=== PATIENT | male | born 1960 | race Caucasian/White ===

== ENCOUNTER → 2022-03-09 09:17 | Outpatient (BNVA) | payer OTHER, SELFPAY | PROVIDERS: Visit Provider Surgery | DX: Z12.11 Encounter for screening for malignant neoplasm of colon (principal); Z86.010 Personal history of colon polyps | CPT/HCPCS: 99203 ==

== ENCOUNTER 2022-05-26 09:43 | Day surgery (SDC) | payer OTHER, SELFPAY ==
[2022-05-24 15:07] VITALS: BMI 29.4
[2022-05-26 10:08] VITALS: BP 140/88; PULSE 64; RESP 18; TEMP 36.1; O2SAT 98
[2022-05-26] MEDS: sodium chloride 0.9% 1,000 ML 30 ML IV (10:28)
--- NOTE | 2022-05-26 10:40 | ANES.PREANE2 ---
Pre-Anesthetic Assessment Height/Weight: Height 1.78 m Weight 92.986 kg Temp Pulse Resp BP Pulse Ox O2 Del Method 97.0 F L 64 18 140/88 98 05/26/22 10:08 05/26/22 10:08 05/26/22 10:08 05/26/22 10:08 05/26/22 10:08 05/26/22 10:08 Preop Diagnosis: Screening Operation Date: 05/26/22 11:00 Proposed Procedures p Colonoscopy 86055,Z12.11(Not Applicable) - Elder Stewart DO Familial anesthetic complications: None Was Beta Tanika taken within 24 hours: N/A Was Clonidine taken within 24 hours: N/A Last intake: Intake Last Liquid Date 05/25/22 Last Liquid Time 19:00 Last Solid Date 05/25/22 Last Solid Time 09:00 Social No alcohol and No tobacco Exam alert, oriented x 3, clear to auscultation bilaterally and regular rate & rhythm Airway Submandibular: within normal limits Cervical ROM: Other (Decreased ROM) Mallampati: Class III Dentition: chipped (Chipped and broken teeth) History/ROS No significant history except as noted and No significant complaints Pulmonary None reported CV/HEM None reported None reported Hepatic None reported GI None reported Metabolic None reported Musc/skel Lower Back Pain Neuropsych Anxiety and Depression Anesthetic Plan ASA status: 2 Anesthesia: Anesthesia Evaluation, General and MAC Risk of > 500 ml blood loss (7ml/kg in children): No Medications/Allergies Home Medications Medication Instructions Recorded Confirmed Last Taken Type hydrocodone 5 mg-acetaminophen 325 1 tab PO DAILY PRN Pain 03/08/22 05/26/22 Unknown History mg tablet pravastatin 40 mg tablet 20 mg PO DAILY 03/08/22 05/26/22 05/25/22 History venlafaxine 150 mg 150 mg PO DAILY 03/08/22 05/26/22 05/25/22 History capsule,extended release 24 hr ibuprofen 200 mg tablet 800 mg PO TID PRN Pain 03/09/22 05/26/22 05/25/22 History kratom 1 caplet as directed DAILY PRN Pain 03/09/22 05/26/22 05/25/22 History Allergies Allergy/AdvReac Type Severity Reaction Status Date / Time No Known Allergies Allergy Unverified 05/26/22 10:05 Current Medications Generic Name Dose Route Start Last Admin Trade Name Shaggy PRN Reason Stop Dose Admin Sodium Chloride 1,000 mls @ 30 mls/hr 05/26/22 10:15 05/26/22 10:28 Sodium Chloride 0.9% IV 05/27/22 10:14 30 mls/hr .Q24H CHRISSY Administration PFSH Anesthesia Medical History Anxiety Cervicalgia Depression Hyperlipemia Low back pain Obesity Rosacea Sleep apnea Surgical History History of ankle fusion left History of neck surgery Hx of colonoscopy with polypectomy Hx of left knee surgery Hx of right knee surgery Family History Mother Cancer Father Lung disease Social History Smoking and tobacco status: never smoked Data Anesthesia Cardiac Studies: No Data to Display
--- NOTE | 2022-05-26 11:15 | P.HP_ITS ---
Providers/Chief Complaint Primary Care Provider: СВЕТЛАНА Slater Chief Complaint: Personal history of colonic polyps History of Present Illness Naldo Camara is a 61 year old male who is here for colonoscopy Medications/Allergies Home Medications Medication Instructions Recorded Confirmed Last Taken Type hydrocodone 5 mg-acetaminophen 325 1 tab PO DAILY PRN Pain 03/08/22 05/26/22 Unknown History mg tablet pravastatin 40 mg tablet 20 mg PO DAILY 03/08/22 05/26/22 05/25/22 History venlafaxine 150 mg 150 mg PO DAILY 03/08/22 05/26/22 05/25/22 History capsule,extended release 24 hr ibuprofen 200 mg tablet 800 mg PO TID PRN Pain 03/09/22 05/26/22 05/25/22 History kratom 1 caplet as directed DAILY PRN Pain 03/09/22 05/26/22 05/25/22 History Allergies Allergy/AdvReac Type Severity Reaction Status Date / Time No Known Allergies Allergy Unverified 05/26/22 10:05 PFSH Acute PFSH: Medical History Anxiety Cervicalgia Depression Hyperlipemia Low back pain Obesity Rosacea Sleep apnea Surgical History History of ankle fusion left History of neck surgery Hx of colonoscopy with polypectomy Hx of left knee surgery Hx of right knee surgery Family History Mother Cancer Father Lung disease Social History Smoking and tobacco status: never smoked Vitals/I&O/Wt Last Vital Signs Temp 97.0 F L 05/26/22 10:08 Pulse 64 05/26/22 10:08 Resp 18 05/26/22 10:08 BP 140/88 05/26/22 10:08 Pulse Ox 98 05/26/22 10:08 O2 Del Method 05/26/22 10:08 Weight last 48 hrs Weight 205 lb A&P Assessment and plan (1) History of colon polyps: Plan Colonoscopy Attestations Medical Necessity Statement*: Home Coding Level of Care Code Acute Columnist/Commentator for Chg Fwd Diagnoses History of colon polyps Z86.010
[2022-05-26 11:55] VITALS: BP 136/92; PULSE 59; RESP 12; TEMP 36.1; O2SAT 92
[2022-05-26 12:11] VITALS: BP 136/88; PULSE 50; RESP 18; O2SAT 99
--- NOTE | 2022-05-26 13:52 | ANE.PACU2 ---
Inpatient post-anesthesia follow up: Airway intact: Yes Vital signs: Temperature 97.0 F Pulse Rate 50 Respiratory Rate 18 Blood Pressure 136/88 Pulse Oximetry 99 Oxygen Delivery Me thod Room Air Oxygen Flow Rate 2 Fraction of Inspir ed Oxygen Hydration adequate: Yes Nausea and vomiting: No Pain level: 1 Mental status: Baseline
== END 2022-05-26 12:43 | disposition home or self-care (01) ==
PROVIDERS: PCP Nurse Practitioner; Visit Provider Surgery
PROC: 0DJD8ZZ Inspection of Lower Intestinal Tract, Via Natural or Artificial Opening Endoscopic (ICD-10-PCS; CPT 45378; principal; 2022-05-26 11:00)
DX: Z86.010 Personal history of colon polyps (principal); K57.30 Diverticulosis of large intestine without perforation or abscess without bleeding; K63.5 Polyp of colon; F41.9 Anxiety disorder, unspecified; F32.A Depression, unspecified; E66.9 Obesity, unspecified; Z68.29 Body mass index [BMI] 29.0-29.9, adult; E78.5 Hyperlipidemia, unspecified; G47.30 Sleep apnea, unspecified
CPT/HCPCS: 45380; 45385; 88305; J2704; J7030